=== PATIENT | male | born 1985 | race Hispanic/Latino ===

== ENCOUNTER 2019-01-12 19:56 | Emergency (ER) | payer OTHER, SELFPAY ==
[2019-01-12] MEDS ORDERED: Ketorolac Tromethamine 60 MG/2 ML VIAL ONE (20:11)
--- NOTE | 2019-01-14 19:16 | RAD ---
RIGHT LEG TWO VIEWS: 01/14/2019 FINDINGS: The tibia and fibula both appear intact. On the lateral view, there appears to be an avulsion from t he posterior tip of the posterior process of the talus. The margins of this avulsion are somewhat an gular, suggesting that it could be acute. If the patient is having pain immediately posterior to the talus, then an acute avulsion might be possible. The remainder of the leg is unremarkable. IMPRESSION: Presumed trauma to the posterior process of the talus. Correlate with clinical examination to help deniz nina if acute or old. POS: HOME
== END 2019-01-12 21:12 | disposition home or self-care (01) ==
LOC: BURERS 19:56
DX: S80.11XA Contusion of right lower leg, initial encounter (principal); E11.9 Type 2 diabetes mellitus without complications; F17.220 Nicotine dependence, chewing tobacco, uncomplicated; Z79.84 Long term (current) use of oral hypoglycemic drugs
CPT/HCPCS: 96372; J1885

== ENCOUNTER 2022-08-03 19:16 | Emergency (ER) | payer OTHER, SELFPAY ==
[2022-08-03] MEDS ORDERED: Ondansetron PF 4 MG/2 ML Vial ONE (20:09)
[2022-08-03 20:53] LABS: #Basophils 0.1 thou/uL (0.0-0.2); #Lymphocytes 1.1 thou/uL (1.20-3.40); #Monocytes 0.6 thou/uL (0.11-0.59); #Neutrophils 9.9 thou/uL (1.40-6.50); %Basophils 0.5 % (0.0-1.0); %Eosinophils 0.1 % (0.0-10.0); %Lymphocytes 9.3 % (21.0-51.0); %Monocytes 5.3 % (0.0-10.0); %Neutrophils 84.9 % (42.0-75.0); Hemoglobin 13.8 g/dL (14.0-18.0); Mean Corpuscular HGB CONC 32.5 g/dL (32.0-36.0); Mean Corpuscular Hemoglobin 26.5 pg (27.0-31.0); Mean Corpuscular Volume 81.6 fl (78.0-98.0); Mean Platelet Volume 8.4 fL (7.4-10.4); Platelet Count 259 10x3/uL (130-400); RBC Distribution Width 12.8 % (11.5-14.5); Red Blood Cell (RBC) Count 5.21 mill/uL (4.70-6.10); White Blood Cell (WBC) Count 11.7 10x3/uL (4.8-10.8)
[2022-08-03 21:08] LABS: ALT (SGPT) 18 U/L (8-55); AST (SGOT) 11 U/L (5-34); Albumin 3.7 g/dL (3.5-5.0); Alkaline Phosphatase 122 U/L (40-110); Anion Gap 14 mmol/L (10-20); BUN (Urea Nitrogen) 10 mg/dL (8.9-20.6); Bilirubin, Total 0.5 mg/dL (0.2-1.2); Calc. Creatinine Clearance 0 mL/min (70-130); Calcium 9.1 mg/dL (7.8-10.44); Carbon Dioxide 24 mmol/L (22-29); Chloride 105 mmol/L (98-107); Estimated GFR 115; Glucose 360 mg/dL (70-105); Potassium 3.9 mmol/L (3.5-5.1); Protein, Total 7.7 g/dL (6.0-8.3); Sodium 139 mmol/L (136-145)
== END 2022-08-03 21:45 | disposition home or self-care (01) ==
LOC: BURERS 19:16
DX: J11.1 Influenza due to unidentified influenza virus with other respiratory manifestations (principal); E11.9 Type 2 diabetes mellitus without complications; Z79.84 Long term (current) use of oral hypoglycemic drugs; F17.220 Nicotine dependence, chewing tobacco, uncomplicated
CPT/HCPCS: 80053; 85025; 96374; J2405